=== PATIENT | female | born 1940 | race Two or more races ===

== ENCOUNTER 2017-10-19 12:52 | Emergency (ER) | payer MEDICAID ==
[~2017-10-19] VITALS: Ht 157.5 cm; Wt 65.0 kg
[~2017-10-19 12:52] MED LIST: ADV25050 INH; ASPI-664 PO; DOXY100T2 PO; LETR2.5T PO; LEVO500T72 PO; PRED10TA PO; TER25 PO; UDROBDM PO
[2017-10-19 12:59] VITALS: Ht 157.5 cm; Wt 65.0 kg
--- NOTE | 2017-10-19 15:32 | ERD ---
ER Documentation Chief Complaint Chief Complaint FELL FROM THE BED HAS HX OF STROKE AND R SIDED WEAKNESS HAS R SIDE PAIN HPI Patient is a 77-year-old female who was found lying prone on the ground next to her bed. There is no witnessed fall, and the patient had been seen normal 30 minutes prior. The patient is nonverbal at baseline due to prior stroke and has chronic right-sided weakness that is worse in the leg. There is no reported visible trauma or deformity. The patient is not on blood thinners. She has not had any vomiting or fever. She has been eating well. ROS All systems reviewed and are negative except as per history of present illness. Medications Home Meds Active Scripts Cephalexin* (Keflex*) 500 Mg Capsule, 500 MG PO QID for 7 Days, CAP Prov:YOSI DIAMOND MD 10/19/17 Reported Medications [Qvar 80 Mcg] No Conflict Check, 1 PUFF PO BID 10/19/17 Alendronate Sodium* (Fosamax*) 70 Mg Tablet, 70 MG PO QFRIDAY, #4 TAB 10/19/17 Atorvastatin* (Atorvastatin*) 40 Mg Tablet, 40 MG PO DAILY, #30 TAB 10/19/17 Aspirin* (Aspirin* EC) 325 Mg Tab, 325 MG PO DAILY, TAB 10/19/17 Naproxen* (Naproxen*) 500 Mg Tablet, 250 MG PO BID, TAB 10/19/17 Discontinued Reported Medications Letrozole* (Letrozole*) 2.5 Mg Tablet, 2.5 MG PO DAILY, TAB 03/06/16 Discontinued Scripts Prednisone* (Prednisone*) 10 Mg Tab, 10 MG PO DAILY, #18 TAB 1. take 30mg by mouth daily for 3 days 2. then 20mg by mouth daily for 3 days 3. then 10mg by mouth daily for 3 days Prov:MATHEW HASKINS 03/17/16 Guaifenesin-Dextromethorphan* (Robitussin* DM) 5 Ml Syrup, 5 ML PO Q4H Y for Cough, #8 OZ Prov:MATHEW HASKINS 03/17/16 Salmeterol Xinaf/Fluticasone* (Advair*) 1 Inh Inha, 1 INH INH BID RESP THERAPY for 30 Days Prov:MATHEW HASKINS 03/17/16 Terbutaline Sulfate* (Terbutaline Sulfate*) 2.5 Mg Tab, 2.5 MG PO Q8 for 30 Days , TAB Prov:MATHEW HASKINS 03/17/16 Levofloxacin* (Levaquin*) 500 Mg Tab, 500 MG PO DAILY@20 for 5 Days, TAB Prov:REGIDOMATHEW Bauer 03/17/16 Doxycycline* (Vibramycin*) 100 Mg Tab, 100 MG PO BID for 7 Days, TAB Prov:REGIDORMATHEW 03/17/16 Aspirin* (Aspirin* EC) 81 Mg Tabec, 81 MG PO DAILY for 30 Days Prov:MATHEW HASKINS 03/17/16 Allergies Allergies: Coded Allergies: No Known Allergy (Unverified , 10/19/17) PMhx/Soc Past medical history: CVA, Asthma, hypertension Past surgical history: Denies Social history: Denies tobacco or alcohol Anesthesia Reaction: No Hx Neurological Disorder: No Hx Respiratory Disorders: Yes (Asthma) Hx Cardiac Disorders: Yes (HTN) Hx Psychiatric Problems: No Hx Alcohol Use: No Hx Substance Use: No Hx Tobacco Use: No FmHx Noncontributory Physical Exam Vitals Vital Signs Date Time Temp Pulse Resp B/P Pulse Ox O2 Delivery O2 Flow Rate FiO2 10/19/17 18:30 98.7 97 17 144/85 94 Room Air 10/19/17 16:30 101 17 115/78 98 Room Air 10/19/17 15:29 103 20 110/89 100 Room Air 10/19/17 12:59 98.9 112 18 116/81 98 Physical Exam Const: Alert, nonverbal, does not follow commands, no signs of distress Head: Atraumatic, No visible or palpable contusion or hematoma Eyes: Normal Conjunctiva, No pallor, no icterus ENT: Normal External Ears, Nose and Mouth. Mucous membranes moist Neck: Full range of motion. No midline tenderness. Resp: Clear to auscultation bilaterally, No wheezes, no rales no chest wall tenderness or crepitus Cardio: Regular rate and rhythm, no murmurs Abd: Soft, non tender, non distended. Skin: No petechiae or rashes Back: No midline or flank tenderness Ext: No cyanosis, or edema, Pain with ranging of right hip, hip held in partial flexion, which the daughter states is chronic. 2+ DP pulses bilaterally. Neur: Awake and alert, Weakness of right arm and leg at baseline per daughter. No facial droop. Psych: Normal Mood and Affect Result Diagram: 10/19/17 1526 Results 24 hrs Laboratory Tests Test 10/19/17 15:26 10/19/17 15:58 Sodium Level 139mmol/L Potassium Level 3.7mmol/L Chloride Level 97mmol/L Carbon Dioxide Level 32mmol/L Anion Gap 14 Blood Urea Nitrogen 14mg/dl Creatinine 0.62mg/dl Glucose Level 111mg/dl Calcium Level 9.6mg/dl Urine Color YELLOW Urine Clarity CLOUDY Urine pH 6.0 Urine Specific [place] 1.013 Urine Ketones NEGATIVEmg/dL Urine Nitrite POSITIVEmg/dL Urine Bilirubin NEGATIVEmg/dL Urine Urobilinogen NEGATIVEmg/dL Urine Leukocyte Esterase TRACELeu/ul Urine Microscopic RBC 1/HPF Urine Microscopic WBC 8/HPF Urine Bacteria FEW/HPF Urine Hemoglobin NEGATIVEmg/dL Urine Glucose NEGATIVEmg/dL Urine Total Protein NEGATIVEmg/dl Current Medications Medications (Trade) Dose Ordered Sig/Glen Route PRN Reason Start Time Stop Time Status Last Admin Dose Admin Ceftriaxone Sodium (Rocephin) 50 ml @ 100 mls/hr ONCE ONCE IVPB 10/19/17 17:30 10/19/17 17:59 DC 10/19/17 17:28 Procedures/MDM EKG read by me: Time 1513, rate 102 Rhythm: Normal sinus [place]: Normal Intervals: Normal ST-T waves: no ischemic changes, T-wave flattening Ectopy: No Q-waves: No Impression: No evidence of ischemia or arrhythmia MDM: Patient is a 77-year-old female who had a unwitnessed fall out of bed with maximal time down of 30 minutes. She had no visible evidence of trauma, but is nonverbal at baseline due to prior stroke. According to family, her behavior is been at baseline. CT of the head and neck were unremarkable and there are no signs of injury. There were no acute neurological symptoms to suggest CVA. Imaging of the hip and spine, which appeared to be tender did not show evidence of fracture. She was incidentally found to have a urinary tract infection but has no signs of sepsis. Is given a dose of Rocephin and will be sent home with a course of Keflex. Culture was sent. Family was instructed on return precautions and close supervision, as well as close PMD follow-up within 2 days. Departure Diagnosis: Primary Impression: UTI (urinary tract infection) Urinary tract infection type: site unspecified Hematuria presence: without hematuria Qualified Code: N39.0 - Urinary tract infection without hematuria, site unspecified Additional Impression: Fall with no significant injury Encounter type: initial encounter Qualified Code: W19.XXXA - Fall with no significant injury, initial encounter Condition: YOSI Villagran MD Oct 19, 2017 15:32
[2017-10-19 15:58] LABS: CALCIUM 9.6 mg/dl (8.4-10.2); CREATININE 0.62 mg/dl (0.44-1.00); POTASSIUM 3.7 mmol/L (3.5-5.1)
[2017-10-19 16:16] LABS: ADD UMIC YES; UR ASCORBIC ACID 40 mg/dL (NEGATIVE); UR BACTERIA FEW /HPF (NONE SEEN); UR BILIRUBIN (Dip) NEGATIVE (NEGATIVE); UR BLOOD (Dip) NEGATIVE (NEGATIVE); UR CLARITY CLOUDY (CLEAR); UR COLOR YELLOW (YELLOW); UR GLUCOSE (Dip) NEGATIVE (NEGATIVE); UR KETONES (Dip) NEGATIVE (NEGATIVE); UR LEUKOCYTE ESTERASE (Dip) TRACE Leu/ul (NEGATIVE); UR NITRITE (Dip) POSITIVE (NEGATIVE); UR RBC 1 /HPF (0-5); UR SPECIFIC GRAVITY (Dip) 1.013 (1.003-1.030); UR TOTAL PROTEIN (Dip) NEGATIVE (NEGATIVE); UR UROBILINOGEN (Dip) NEGATIVE (NEGATIVE)
[2017-10-19] MEDS ORDERED: NAPR-688 PO (17:02)
[2017-10-19] MEDS ORDERED: ASPI325T32 PO (17:02)
[2017-10-19] MEDS ORDERED: ATOR40TA68 PO (17:03)
[2017-10-19] MEDS ORDERED: ALEN70TA30 PO (17:04)
[2017-10-19] MEDS ORDERED: QVAR 80 MCG PO (17:05)
--- NOTE | 2017-10-19 17:08 | RADRPT ---
PROCEDURE: X-ray, Cervical Spine. CLINICAL INDICATION: Pain. Trauma. TECHNIQUE: Cervical spine x-rays, 3 views. COMPARISON: 08/20/2016. FINDINGS: Bone density appears slightly decreased. C1 through C5 are visualized. The lower cervical spine is o bscured by overlapping structures. The visualized vertebral body heights are normal. Vertebral body alignment is maintained. The visualized posterior elements are aligned. The visualized intervertebra l disc heights are normal. Paravertebral soft tissues are unremarkable. Chronic appearing changes ar e seen within the parenchyma of the lung apices and are unchanged. IMPRESSION: Unremarkable limited cervical spine x-rays series. Please note that the lower cervical spine is not adequately visualized. If there is high clinical suspicion of cervical spine injury, follow-up shoul d be obtained with CT cervical spine. RPTAT: [facility] .Janelle Hernandez MD, MD Date Time Electronically viewed and signed by .Janelle Hernandez MD, on 10/19/2017 17:07 .T/
--- NOTE | 2017-10-19 17:11 | RADRPT ---
PROCEDURE: XR Lumbar Spine. CLINICAL INDICATION: Pain. Trauma. TECHNIQUE: Lumbar spine x-rays, 3 views. COMPARISON: Environmental Sustainability Manager x-ray from CT abdomen/pelvis 03/06/2016. FINDINGS: Bone density appears slightly decreased. The lateral view is slightly limited as a result of motion artifact. Despite this limitation, the vertebral body heights appear normal. Vertebral body alignmen t is maintained. Mild lumbosacral intervertebral disc narrowing is observed. Scattered osteophytes p roject anteriorly from the lumbar spine. Paravertebral soft tissues are unremarkable. IMPRESSION: Lumbosacral degenerative disc disease. RPTAT: [facility]ST .Janelle Hernandez MD, MD Date Time Electronically viewed and signed by .Janelle Hernandez MD, MD on 10/19/2017 17:11 .T/
--- NOTE | 2017-10-19 17:11 | RADRPT ---
PROCEDURE: XR Hip. CLINICAL INDICATION: Trauma. TECHNIQUE: AP and frog lateral views of the right hip were performed. COMPARISON: None. FINDINGS: Osteoarthritic degenerative changes of the right hip joint space is seen. Osteophyte formation gema g the superolateral margin of the right acetabulum is seen. Mild joint space narrowing is present. The right femoral head is intact without evidence for deformation or collapse. The soft tissues are unremarkable. No radiopaque foreign body is seen. The remaining osseous structures are unremarkab le. IMPRESSION: 1. Mild osteoarthritic degenerative changes of the right hip joint space. 2. No acute fracture or subluxation identified. RPTAT: [facility] Physician Amy Date Time Electronically viewed and signed by Physician Amy on 10/19/2017 17:11 /
[2017-10-19] MEDS ORDERED: CEFTRIAXONE 1 GM/50 ML (PMX) 50 ML IVPB ONE (17:30)
--- NOTE | 2017-10-19 18:12 | RADRPT ---
PROCEDURE: CT Brain without contrast. CLINICAL INDICATION: Trauma TECHNIQUE: A CT of the brain was performed on a multidetector CT scanner utilizing axial imaging f rom the skull base through the vertex without IV contrast. Multiplanar reformatted images were made . Images were reviewed on a PACS workstation. The CTDIvol is 45 mGy and the DLP is 1080 mGycm. DICOM images are available. One or more of the following dose reduction techniques were utilized: 1.) Automated exposure control 2.) Adjustment of the mA +/- kV according to patient's size 3.) Use of iterative reconstruction technique. COMPARISON: None FINDINGS: There is motion artifact limiting the sensitivity of the study. Noted is moderate to severe diffuse cerebral volume loss with sulcal and ventricular dilatation. No discrete extra-axial fluid collection or mass is present. The ventricles are in the midline and of n ormal contour and configuration. There are confluent regions of diminished attenuation in the perive ntricular and subcortical white matter of both cerebral hemispheres. No associated mass effect is se en. Chronic lacunar infarct is seen in the left inferior central abigail. No other intra-axial masses o r regions of abnormal attenuation are present. There is preservation of normal smith-white discrimina tion. No intracranial hemorrhage is seen. No skull fracture is identified. IMPRESSION: No intracranial hemorrhage or skull fracture. Atrophy. White matter disease compatible with chronic small vessel ischemia. Chronic infarct left po ns. .Greogrio Tay MD, MD Date Time Electronically viewed and signed by .Gregorio Tay MD, MD on 10/19/2017 18:12 .A/
[2017-10-19 18:30] VITALS: BP 144/85; PULSE 97; RESP 17; TEMP 98.7
--- NOTE | 2017-10-19 18:42 | RADRPT ---
PROCEDURE: CT cervical spine without contrast CLINICAL INDICATION: Trauma. Pain. TECHNIQUE: CT scan of the cervical spine was performed on a multidetector scanner. No IV contrast was administered. Coronal and sagittal reformatted images were obtained from the axial source imag es. Images were reviewed on a high-resolution PACS workstation. Exam CTDlvol = 44 mGy and DLP = 874 mGy-cm. One of the following 3 dose reduction techniques were used: Automated exposure control; adjustment of the mA and/or kV according to patient size; or use of iterative reconstruction technezzai - how to [place]. DICOM images are available. COMPARISON: None available FINDINGS: The knees limited by patient motion. There is no fracture. Alignment is grossly maintained although reconstruction images are limited. There is maintenance of height of the vertebral bodies. Mild mu ltilevel degenerative changes are present. Bone mineralization is within normal limits. Preverteb ral soft tissues are unremarkable. Limited evaluation lung apices demonstrates pleural parenchymal scarring with bronchiectasis IMPRESSION: 1. Limited by patient motion.. 2. No definite acute post-traumatic abnormality. Reconstruction images. 3. Mild degenerative changes. 4. Bilateral lung apical pleural parenchymal scarring bronchiectasis. RPTAT: [facility]K .Jasbir Newton MD, Date Time Electronically viewed and signed by .Jasbir Newton MD, on 10/19/2017 18:42 .K/
[2017-10-19] MEDS ORDERED: CEPH-443 PO (19:31)
== END 2017-10-19 20:50 | disposition home or self-care (01) ==
LOC: E/R 12:52
DX: N39.0 Urinary tract infection, site not specified (principal); J45.909 Unspecified asthma, uncomplicated; I10 Essential (primary) hypertension; R40.2142 Coma scale, eyes open, spontaneous, at arrival to emergency department; R40.2242 Coma scale, best verbal response, confused conversation, at arrival to emergency department; R40.2362 Coma scale, best motor response, obeys commands, at arrival to emergency department; R93.0 Abnormal findings on diagnostic imaging of skull and head, not elsewhere classified; Z79.82 Long term (current) use of aspirin
CPT/HCPCS: 70450; 72040; 72100; 72125; 73510; 80048; 81001; 87086; 93005; 96374; J0696; P9612; Z7502; Z7610

== ENCOUNTER 2018-05-25 01:40 | Inpatient (IN) | END 2018-05-28 19:40 | disposition home or self-care (01) | DRG 690 ==